=== PATIENT | male | born 2000 | race Two or more races ===

== ENCOUNTER 2024-06-29 17:05 | Emergency (ER) | payer MEDICAID, SELFPAY ==
[2024-06-29 17:05] VITALS: BMI 22.7
[2024-06-29 17:19] VITALS: BP 135/75; PULSE 74; RESP 19; TEMP 37.3; O2SAT 97
--- NOTE | 2024-06-29 17:23 | XR_ITS ---
Examination: Lumbar spine 3 views Technique AP lateral coned lateral lower lumbar spine view Exam date and time:: June 29, 2024 1730 hrs. After lifting injury 2 days ago Findings: Adequate lumbar vertebral bodies No lumbar fracture No spondylolisthesis Impression: No lumbar fracture
--- NOTE | 2024-06-29 17:26 | EDNOTE_ITS ---
ED Back Injury Pain RME/HPI General Chief Complaint: Back Pain/Injury Stated Complaint: I FEEL LIKE I PULLED MY BACK 3 DAYS AGO. Time Seen by Provider: 06/29/24 17:08 Arrival date/time: 06/29/24 17:05 24-year-old male reports with complaints of lower back pain x 3 days. Patient states while lifting an object he felt a pop sensation in his lower right side back and now he has pain that radiates to the right lower extremity. Patient denies any changes in bowel or bladder habits numbness tingling or decreased range of motion in the lower extremities or abdominal pain. Patient states that he has not been taking any medications for symptoms Limitations: no limitations Related Data Previous Rx's ?Medication ?Instructions ?Recorded ibuprofen 600 mg tablet 600 mg PO Q6H #60 tabs 11/21/17 ibuprofen 600 mg tablet 600 mg PO Q8H PRN fever or pain 11/18/18 #30 tabs cyclobenzaprine 10 mg tablet 10 mg PO HS PRN muscle spasm #10 12/18/18 tabs naproxen 500 mg tablet 500 mg PO BID PRN pain #30 tabs 12/18/18 meloxicam 7.5 mg tablet 7.5 mg PO BID PRN pain #30 tabs 06/29/24 methocarbamol 750 mg tablet 750 mg PO TID PRN pain #30 tabs 06/29/24 Allergies Allergy/AdvReac Type Severity Reaction Status Date / Time promethazine Allergy Severe VOMITING, Verified 06/29/24 17:09 RAPID HEART BEAT Review of Systems Constitutional Constitutional: Denies chills and Denies fever(s) Gastrointestinal Gastrointestinal: Denies abdominal pain and Denies change in bowel habits Genitourinary Genitourinary: Denies dysuria, Denies erectile dysfunction, Denies flank pain, Denies penile discharge, Denies testicular pain and Denies urinary urgency Musculoskeletal Musculoskeletal: Reports back pain, Denies deformity, Denies numbness and Denies tingling Integumentary/Breasts Skin/Breast: Denies lesions and Denies rash Neurologic Neurologic: Denies numbness and Denies tingling Hematologic/Lymphatic Hematologic/Lymphatic: Denies as per HPI and Denies easy bleeding Past Medical History Past Medical History NEUROLOGIC: Negative Neurological Disorders CARDIAC: Negative Cardiac Disorders or Congestive Heart Failure RESPIRATORY: Negative Chronic Obstructive Pulmonary Disease (COPD) GENITOURINARY: Negative Renal Disease ENDOCRINE: Negative Diabetes Mellitus Type 1 or Diabetes Mellitus Type 2 Social History SMOKING STATUS: Never smoker SUBSTANCE USE: does not use ED Exam General Limitations: Present no limitations General appearance: Present alert and in no apparent distress Abdominal Exam Abdominal exam: Present soft and normal bowel sounds Extremities Exam Extremities exam: Present normal inspection and full ROM Back Exam Back exam: Present normal inspection, full ROM, tenderness (L1/L2 right side extending along sciatic nerve to mid right buttocks) and straight leg raise (R); Absent muscle spasm, paraspinal tenderness or straight leg raise (L) Neurological Exam Neurological exam: Present alert, oriented X3 and CN II-XII intact Psychiatric Psychiatric exam: Present normal affect and normal mood Skin Skin exam: Present warm, dry, intact and normal color Course Course Course Narrative: X-ray of lumbar spine is negative for fractures or derangements of the spine Quality Measures none Orders Category Date Time Status XR lumbar spine 2-3V Stat Exams 06/29/24 17:23 Completed Ketorolac Inj [Toradol Inj] Med 06/29/24 17:23 Discontinued 30 mg IM X1 ONE Vital Signs Vital signs: Vital Signs Temperature 99.2 F 06/29/24 17:19 Pulse Rate 74 06/29/24 17:19 Respiratory Rate 19 06/29/24 17:19 Blood Pressure 135/75 H 06/29/24 17:19 Pulse Oximetry (%) 97 06/29/24 17:19 Oxygen Delivery Method Room Air 06/29/24 17:19 Back Pain / Injury Patient data External records reviewed:: None Clinical information provided by:: patient Social determinants that could affect healthcare access:: none Patient has the following chronic illnesses:: none How is presenting disease/condition affected by chronic disease/condition?: no chronic disease Evaluation data The following diagnostics were reviewed and interpreted by me:: radiology exam(s) Lab and/or radiology exams considered but not ordered:: none Interpretation Summary: Lumbar x-ray negative for fractures or derangements of the spine Medications / Prescriptions Medications or Prescriptions considered but not ordered:: None Medication administrations:: Medication Administration History Discontinued Medications Ketorolac Tromethamine (Ketorolac Inj 60 Mg/2 Ml Vial) 30 mg IM X1 ONE Stop: 06/29/24 17:24 Last Admin: 06/29/24 18:00 Dose: 30 mg Documented By: OA As above Consultations Consultation(s) initiated? (list below): No Diagnosis Most likely diagnosis given after review of the tests above:: Lumbar strain Admission Indicated Admission indicated?: not indicated Admission Request Was there a request for admission?: No Disposition Plan Disposition Plan: Discharge Discharge Attestation Discharge Attestation: The patient and all family members were given an opportunity to ask questions and understood the discharge instructions. Discharge instructions specifically effects, indications for sooner follow up or return to the emergency department, and the expected course of current diagnosis. Patient condition: Stable Discharge Plan Plan Patient Disposition: HOME (Self Care) Prescriptions/Referrals Prescriptions/Med Rec: New meloxicam 7.5 mg tablet 7.5 mg PO BID PRN (Reason: pain) Qty: 30 0RF methocarbamol 750 mg tablet 750 mg PO TID PRN (Reason: pain) Qty: 30 0RF No Action ibuprofen 600 mg tablet 600 mg PO Q6H Qty: 60 0RF ibuprofen 600 mg tablet 600 mg PO Q8H PRN (Reason: fever or pain) Qty: 30 0RF naproxen 500 mg tablet 500 mg PO BID PRN (Reason: pain) Qty: 30 0RF cyclobenzaprine 10 mg tablet 10 mg PO HS PRN (Reason: muscle spasm) Qty: 10 0RF Referrals: Tee Malone MD [Primary Care Provider] - In 1 week Problem List Clinical Impression: Acute lumbar myofascial strain Patient/Caregiver Discharge Instructions Discharge Activity: activity as tolerated Education Materials: Self-Care for Strains and Sprains, ED Back Sprain/Strain Additional Instructions: Your pain is caused by strain of your muscle tissue in your back and could sometime press on the nerves. Doing stretching techniques as discussed in your discharge packet as well as not sitting for long periods of time, but taking short walks, applying ice, use medications as directed and hydrating well will help decrease your pain. Try to avoid running, climbing hopping, jumping, kneeling, or squatting for 5- 7 days, and follow with your primary care provider if symptoms do not improve in 5 to 7 days Print Language: Bel[place]ian Stand Alone Forms: Mary Jo Award Info., Patient Portal Info Letter
[2024-06-29] MEDS: KETOROLAC INJ 60 MG/2 ML VIAL 30 MG IM (18:00)
== END 2024-06-29 18:32 | disposition home or self-care (01) ==
PROVIDERS: Emergency Provider Emergency Medicine; PCP Family Medicine
DX: S39.012A Strain of muscle, fascia and tendon of lower back, initial encounter (principal); X50.9XXA Other and unspecified overexertion or strenuous movements or postures, initial encounter
CPT/HCPCS: 72100; 96372; 99283; J1885